=== PATIENT | male | born 1960 | race Caucasian/White ===

== ENCOUNTER 2021-01-06 12:46 | Emergency (ER) | payer OTHER, SELFPAY ==
[2021-01-06 13:33] VITALS: BP 144/98; PULSE 74; RESP 16; TEMP 37.1; O2SAT 97; BMI 28.0
[2021-01-06 13:59] LABS: IDNOW Serial# 9DD0AD1C; Strep A Nucleic Acid Negative (Negative)
[2021-01-06 14:04] LABS: COVID-19 Test Negative (Negative)
--- NOTE | 2021-01-06 14:26 | ED_ITS ---
HPI - General Adult General Chief complaint: General Medical Stated complaint: flu like symptoms Time Seen by Provider: 01/06/21 13:36 Source: patient Mode of arrival: ambulatory Limitations: no limitations History of Present Illness HPI narrative: Patient presents to ED for flu-like symptoms when patient states sore throat, bodyaches, chills and headache since yesterday. Patient states that he is vaccinated against COVID. Patient states no coughing, chest pain, abdominal pain, dysuria, hematuria, flank pain, nausea, vomitting, shortness of breath, diarrhea, dizzines, or weakness. Related Data Allergies Allergy/AdvReac Type Severity Reaction Status Date / Time No Known Allergies Allergy Verified 01/06/21 13:34 [No Known Allergies*] Review of Systems Constitutional: Constitutional: Reports as per HPI, Reports no additional constitutional complaints, Reports body ache(s), Reports chills and Reports headache(s) Eyes: Eyes: Reports as per HPI and Reports no additional eye complaints ENT: Reports system reviewed and no additional complaints, except as documented, Reports as per HPI, Reports headache(s) and Reports sore throat Cardiovascular: Cardiovascular: Reports as per HPI and Reports no additional cardiovascular complaints Respiratory: Respiratory: Reports as per HPI and Reports no additional respiratory complaints Gastrointestinal: Gastrointestinal: Reports as per HPI and Reports no additional gastrointestinal complaints Genitourinary: Genitourinary: Reports no additional male genitourinary complaints and Reports as per HPI Musculoskeletal: Musculoskeletal: Reports no additional musculoskeletal complaints and Reports as per HPI Neurologic: Reports system reviewed and no additional complaints, except as documented, Reports as per HPI and Reports headache(s) Psychiatric: Psychiatric: Reports no additional psychiatric complaints and Reports as per HPI [facility] Past Medical History Medical History (Updated 01/06/21 @ 14:37 by ISAÍAS Corral) HIV (human immunodeficiency virus infection) Social History Social History Advance Directives: Yes Advance Directives Information Provided: Yes Advance Directives on File: No Physical Exam Vital Signs: Vital Signs: Last Vital Signs Temp 98.8 F 01/06/21 13:33 Pulse 74 01/06/21 13:33 Resp 16 01/06/21 13:33 BP 144/98 H 01/06/21 13:33 Pulse Ox 97 01/06/21 13:33 Body Mass Index 28.0 Const: General: cooperative, healthy appearing, comfortable, no acute di stress, well developed, alert and awake Orientation/consciousness: patient oriented x3 HENMT: Head: Yes normal to inspection, Yes No palpable skull fracture present, Yes normocephalic, Yes atraumatic and No abrasion Throat: Yes posterior oropharynx normal, Yes tonsils normal and Yes uvula midline Eyes: General: appearance normal, both eyes and all related structures Neck: Neck: Yes normal visual inspection, Yes full ROM, Yes no lymphadenopathy, Yes no meningeal signs, Yes trachea midline, Yes supple and No tender Chest: Chest palpation & inspection: normal inspection of the chest and normal palpation of entire chest wall Resp: Effort & Inspection: normal respiratory effort and able to speak in complete sentences Auscultation: clear to auscultation bilaterally Cardio: Jugular venous distension: no JVD Heart sounds: S1 normal heart sound present and S2 normal heart sound present GI: Inspection: Yes normal to inspection and No abdominal wall ecchymosis Palpation (GI): Soft to palpation, not firm, nontender, no guarding and not rigid : General: No CVA tenderness and Yes no CVA tenderness Back/Spine/Pelvis: Back: no CVA tenderness, No CVA tenderness and No back tenderness Skin: General skin exam: no rashes or lesions noted and elasticity normal Neuro: General: patient oriented x3, gait normal, no meningeal signs and CN's II-XI intact bilaterally Cranial nerves: Yes CN's II-XII intact bilaterally Extrem: General: Yes normal to inspection and Yes full ROM Psych: Appearance: grossly normal, well kempt and not disheveled Course Course Course Narrative: Patient have COVID swab and rapid strep test 1 Reevaluation(s) Reevaluation #1: COVID swab and strep test came back negative. Patient will be discharge Time: 14:34 Medical Decision Making [facility] Narrative Medical decision making narrative: Viral pharyngitis Lab Data Labs: Lab Results 01/06/21 01/06/21 Range/Units 13:37 13:37 COVID-19 ([place]) Negative (Negative) COVID-19 Clin Com See Note S. pyogenes GrpA NADJA Negative (Negative) Discharge Plan Discharge Clinical Impression: Acute viral pharyngitis, Acute viral syndrome Patient Disposition: Home, Self-Care Instructions: Pharyngitis (ED), Viral Syndrome (ED) Additional Instructions: Return to the ED immediately for change in voice, drooling, worsening throat pain, inability to tolerate solid food/liquid, fever, chest pain, shortness of breath, coughing up blood, neck pain, or any other concerning symptoms. Your COVID swab and strep nucleic acid test came back negative Referrals: Jag Duong MD [Primary Care Provider] - 2 days (Viral pharyngitis. Strep and COVID test came back negative) Interventions: ED Discharge Assessment Last Done: 01/06/21 14:40 Discharge Date/Time: 01/06/21 14:45 Print Language: Faroese
== END 2021-01-06 14:45 | disposition home or self-care (01) ==
PROVIDERS: Emergency Provider Emergency Medicine; PCP Internal Medicine Infectious Disease
DX: B34.9 Viral infection, unspecified (principal); J02.8 Acute pharyngitis due to other specified organisms; Z21 Asymptomatic human immunodeficiency virus [HIV] infection status; Z20.822 Contact with and (suspected) exposure to COVID-19
CPT/HCPCS: 36415; 87635; 87651; 99283

== ENCOUNTER 2021-04-11 14:44 | Outpatient (REF) | payer OTHER, SELFPAY | END 2021-04-11 14:45 | disposition home or self-care (01) | LOC: HO.LAB 14:44 | PROVIDERS: PCP Internal Medicine Infectious Disease; Visit Provider Internal Medicine | DX: Z20.822 Contact with and (suspected) exposure to COVID-19 (principal) | CPT/HCPCS: C9803; U0003; U0005 ==

== ENCOUNTER 2021-07-04 12:16 | Outpatient (REF) | payer OTHER, SELFPAY ==
[2021-07-04 12:41] LABS: COVID-19 Test Negative (Negative); IDNOW Serial# 16C4AD1C
== END 2021-07-04 12:17 | disposition home or self-care (01) ==
LOC: HO.LAB 12:16
PROVIDERS: Visit Provider Internal Medicine
DX: Z20.822 Contact with and (suspected) exposure to COVID-19 (principal)
CPT/HCPCS: 36415; 87635; C9803

== ENCOUNTER 2023-01-16 21:09 | Emergency (ER) | payer OTHER, SELFPAY ==
[2023-01-16 21:26] VITALS: BP 154/92; PULSE 77; RESP 18; TEMP 36.6; O2SAT 95; BMI 26.9
[2023-01-16 22:20] LABS: MANUAL DIFF FLAG NO
[2023-01-16 22:24] LABS: Basophils Percent Auto 0.3 % (0-2); Eosinophils Absolute Auto 0.1 X10*3/uL (0.0-0.4); Eosinophils Percent Auto 0.6 % (0-4); Hematocrit 43.3 % (42.0-52.0); Hemoglobin 13.9 g/dl (14.0-18.0); Imm Gran Abs Auto 0.03 X10*3/uL (0.00-0.03); Imm Gran Pct Auto 0.4 % (0.0-0.4); Lymphocytes Absolute Auto 1.4 X10*3/uL (1.2-4.9); Lymphocytes Percent Auto 16.9 % (20-40); Mean Corpuscular HGB Conc 32.1 g/dl (31.0-36.0); Mean Corpuscular Hemoglobin 27.6 pg (27.0-33.0); Mean Corpuscular Volume 85.9 fL (80.0-98.0); Mean Platelet Volume 9.1 fL (9.4-12.4); Monocytes Absolute Auto 0.5 X10*3/uL (0.1-1.2); Monocytes Percent Auto 6.5 % (2-11); Neutrophils Percent Auto 75.3 % (45-73); Platelet Count 250 X10*3/uL (160-400); Red Blood Count 5.04 X10*6/uL (4.60-5.80); Red Cell Distribution Width 14.7 % (11.0-16.0)
[2023-01-16 22:34] VITALS: BP 141/77; PULSE 64; RESP 18; O2SAT 94
[2023-01-16 22:35] LABS: Alanine Aminotransferase 46 U/L (0-40); Albumin Level 4.3 g/dL (3.5-5.0); Alkaline Phosphatase 54 U/L (39-117); Anion Gap 14 (12-20); Aspartate Amino Transferase 36 U/L (5-37); Bilirubin Direct 0.2 mg/dL (0.0-0.5); Bilirubin Total 0.5 mg/dL (0.0-1.0); Blood Urea Nitrogen 17 mg/dL (9-16); Calcium 9.9 mg/dL (8.4-10.2); Carbon Dioxide 24 mmol/L (22-29); Chloride 107 mmol/L (96-108); Creatinine Clr Calc Pharmacy 64.3; Estimated Glomerular Filt Rate > 60; Glucose Random 116 mg/dL (60-115); Lipase 43 U/L (8-78); Potassium 4.1 mmol/L (3.3-5.1); Sodium 141 mmol/L (135-145); Total Protein 8.1 g/dL (6.5-8.0)
[2023-01-16 23:39] VITALS: BP 135/92; PULSE 63; RESP 18; TEMP 36.9; O2SAT 96
--- NOTE | 2023-01-16 23:40 | MHC.EDTECH ---
This tech assumed of care of pt at 2300, VS taken and call martinez placed within reach.
--- NOTE | 2023-01-17 00:02 | MHC.EDTECH ---
This tech attempted to get a urine, Patient stated he is unable to give at this time. Will reattempt RN aware
--- NOTE | 2023-01-17 01:20 | PC.NURSE ---
Pt lying on stretcher, family at bedside, no acute distress noted at this time.
--- NOTE | 2023-01-17 01:45 | ED.NAVMDI ---
HPI - Nausea/Vomiting/Diarrhea General Chief complaint: Abdominal Pain Stated complaint: diarrhea / abd pain Time Seen by Provider: 01/16/23 22:53 Source: patient and family Mode of arrival: ambulatory History of Present Illness HPI Narrative: 62-year-old male with history of multiple episodes of diarrhea and abdominal pain, he has a Gastroenterology appointment with colonoscopy scheduled in February and states that he has been once again experiencing this as well as nausea for 5 days but denies any associated fever, chills, vomiting, urinary symptoms, shortness of breath or chest pain/palpitations. Related Data Allergies Allergy/AdvReac Type Severity Reaction Status Date / Time nalbuphine [From Nubain] Allergy Rash Verified 01/16/23 23:42 Review of Systems Review of Systems: Pertinent positives and negatives as stated in HPI [facility] Past Medical History Source: nursing notes reviewed Social History Social History Alcohol intake: current Alcohol intake frequency: holidays/special occasions only Smoked in Last 30 Days: No Use of substances other than those prescribed or required for medical reasons: No Advance Directives: No Advance Directives Information Provided: No Physical Exam Vital Signs: Vital Signs: Last Vital Signs Temp 98.4 F 01/16/23 23:39 Pulse 63 01/16/23 23:39 Resp 18 01/16/23 23:39 BP 135/92 H 01/16/23 23:39 Pulse Ox 96 01/16/23 23:39 O2 Del Method Room Air 01/16/23 23:39 BMI result Body Mass Index 26.9 VITAL SIGNS: Reviewed. GENERAL: Well developed, well nourished, in no acute distress. HEAD: Normocephalic/atraumatic EYES: PERRLA, EOMI EARS: Ext canals without abnormality LUNGS: Normal breath sounds. No adventitious sounds or accessory muscle use. SpO2<96> CARDIOVASCULAR: Regular rate and rhythm without noted murmurs ABDOMEN: Soft, non-tender, non-distended with bowel sounds. MUSCULOSKELETAL: No tenderness, deformities, or effusions noted on gross inspection. EXTREMITIES: No cyanosis, clubbing or edema. SKIN: Inspection of the skin reveals no rashes NEUROLOGIC: Alert and oriented x 4. Strength and sensation to light touch were grossly intact x 4. Medical Decision Making Medical Decision Making MDM Narrative: 62-year-old male with history and clinical presentation, DDX: Viral gastroenteritis, colitis, food poisoning, IBS. There have been no GI bleed symptoms. I reviewed all investigations and hematologic indices are negative for leukocytosis and only mild left shift and patient is afebrile and appears well. Chemistries are grossly within normal limits. Differential Diagnosis Please see the discussion above Lab Data Please see the discussion above 01/16/23 22:16 01/16/23 22:16 Labs: Lab Results 01/16/23 01/16/23 01/17/23 Range/Units 22:16 22:16 00:48 WBC 8.0 (4.8-10.8) X10*3/uL RBC 5.04 (4.60-5.80) X10*6/uL Hgb 13.9 L (14.0-18.0) g/dl Hct 43.3 (42.0-52.0) % MCV 85.9 (80.0-98.0) fL MCH 27.6 (27.0-33.0) pg MCHC 32.1 (31.0-36.0) g/dl RDW 14.7 (11.0-16.0) % Plt Count 250 (160-400) X10*3/uL MPV 9.1 L (9.4-12.4) fL Immature Gran % (Auto) 0.4 (0.0-0.4) % Neut % (Auto) 75.3 H (45-73) % Lymph % (Auto) 16.9 L (20-40) % [place] % (Auto) 6.5 (2-11) % Eos % (Auto) 0.6 (0-4) % Baso % (Auto) 0.3 (0-2) % Lymph # (Auto) 1.4 (1.2-4.9) X10*3/uL [place] # (Auto) 0.5 (0.1-1.2) X10*3/uL Eos # (Auto) 0.1 (0.0-0.4) X10*3/uL Baso # (Auto) 0.0 (0.0-0.2) X10*3/uL Abs Immat Gran (auto) 0.03 (0.00-0.03) X10*3/uL Absolute Neuts (auto) 6.0 (2.0-8.3) x10*3/uL Absolute Nucleated RBC 0.000 (0.0-0.012) X10*3/uL Nucleated RBC % (auto) 0.0 (0.0-0.2) /100WBC Sodium 141 (135-145) mmol/L Potassium 4.1 (3.3-5.1) mmol/L Chloride 107 (96-108) mmol/L Carbon Dioxide 24 (22-29) mmol/L Anion Gap 14 (12-20) BUN 17 H (9-16) mg/dL Creatinine 1.22 (0.5-1.4) mg/dL Estim Creat Clear Calc 64.3 Estimated GFR > 60 Random Glucose 116 H (60-115) mg/dL Calcium 9.9 (8.4-10.2) mg/dL Total Bilirubin 0.5 (0.0-1.0) mg/dL Direct Bilirubin 0.2 (0.0-0.5) mg/dL AST 36 (5-37) U/L ALT 46 H (0-40) U/L Alkaline Phosphatase 54 (39-117) U/L Total Protein 8.1 H (6.5-8.0) g/dL Albumin 4.3 (3.5-5.0) g/dL Lipase 43 (8-78) U/L Urine Color Yellow Urine Appearance Clear Urine pH 6.0 (5.0-9.0) Ur Specific [place] 1.020 (1.005-1.025) Urine Protein Trace (Neg-Trace) mg/dL Urine Glucose (UA) Negative (Negative) mg/dL Urine Ketones Negative (Negative) mg/dL Urine Blood Negative (Negative) Urine Nitrite Negative (Negative) Ur Leukocyte Esterase Negative (Negative) Urine RBC 3-5 H (0-2) /HPF Urine WBC 0-5 (0-5) /HPF Ur Squamous Epith Cells 0-2 (0-2) /HPF Urine Bacteria None Seen (None Seen) Hyaline Casts 0-2 (0-2) /LPF External Record Review External record reviewed: Outpatient record and Prior outpatient labs Chronic Conditions Patient?s care impacted by: Other (HIV) Discharge Plan Discharge Clinical Impression: Gastroenteritis Patient Disposition: Home, Self-Care Instructions: Gastroenteritis (ED), Acute Diarrhea (ED), Nutrition Tips for Relief of Diarrhea (ED) Additional Instructions: 1. Resume all home medications. 2. Please continue to drink plenty of fluids to include Pedialyte. Please review the recommendations for dietary changes to improve your diarrhea. 3. Please follow-up with your primary care provider next week. Return to the ER for any worsening symptoms.
== END 2023-01-17 01:57 | disposition home or self-care (01) ==
PROVIDERS: Emergency Provider Student in an Organized Health Care Education/Training Program
DX: K52.9 Noninfective gastroenteritis and colitis, unspecified (principal)
CPT/HCPCS: 36415; 80048; 80076; 81001; 83690; 85025; 99283; 99284

== ENCOUNTER 2023-06-08 06:08 | Day surgery (SDC) | payer OTHER, SELFPAY ==
[2023-06-02 16:26] VITALS: BMI 28.4
--- NOTE | 2023-06-05 08:08 | MHC.SHP ---
Pre-Procedural Eval Section A Date of Service: 06/05/23 The patient is an INPATIENT: No Changes since office visit: No Cold of Flu in the past 2 weeks, No New Medical Problems, No Changes in Medication and No Patient answered all questions The History & Physical has been completed within 30 days and I have reviewed it.: Yes Section B Chief Complaint: Age-related nuclear cataract, left eye Allergies: Allergies Allergy/AdvReac Type Severity Reaction Status Date / Time nalbuphine [From Nubain] AdvReac advised to Verified 06/02/23 16:31 avoid while on methadone Plan Diagnosis/Plan: Unchanged I have reviewed the history and physical and performed a pertinent physical examination on my patient. No changes have occurred unless specified. Time Spent With Patient Time: Total time managing care of this patient today ____ minutes.
--- NOTE | 2023-06-05 08:39 | HO.ANESPROP2 ---
Documented by User: Corrine Rangel NP 06/05/23 08:40 HPI - Anesthesia Eval Consult details Narrative: 63yo M for Left Cataract Extraction IOL Insertion Medically cleared No previous cataract on record PMFSH Past Medical History Medical History Cataract Weight loss Weakness H/O toxoplasmosis Superficial thrombophlebitis Postural dizziness Insomnia HTN (hypertension) Chronic hepatitis C Anxiety HIV (human immunodeficiency virus infection) Surgical History Surgical History Hx of right inguinal hernia repair Social History Social History Household Members: None Housing: Apartment Are you a primary critical care transport nurse to a significant other at home: No Do you presently have visiting nurse or other home services: Yes ([employer] 1 hour per day) Alcohol intake: current Alcohol intake frequency: does not drink Patient Tobacco Use Status: Former Tobacco user Quit Date: 2016 Tobacco use type: Cigarette Have you been hit, kicked, punched, or otherwise hurt by someone within the past year? If so, by whom?: No Are you DNR?: No Advance Directives: No Advance Directives Information Provided: Yes Advance Directives on File: No Recently lost weight without trying: No Nutrition Risks: No Nutritional Risk Poor oral hygiene: No Meds Allergies Allergy/AdvReac Type Severity Reaction Status Date / Time nalbuphine [From Nubain] AdvReac advised to Verified 06/08/23 06:38 avoid while on methadone Home Medications Medication Instructions Recorded Confirmed Last Taken Type acetaminophen 500 mg tablet 1,000 mg PO TID PRN Pain 06/02/23 06/02/23 Unknown History amlodipine 5 mg tablet 5 mg PO DAILY 06/02/23 06/02/23 Unknown History bictegravir 50 mg-emtricitabine 1 tab PO DAILY 06/02/23 06/02/23 Unknown History 200 mg-tenofovir alafenam 25 mg tablet (Biktarvy) ibuprofen 800 mg tablet 800 mg PO TID PRN Pain 06/02/23 06/02/23 Unknown History lisinopril 20 1 tab PO DAILY 06/02/23 06/02/23 Unknown History mg-hydrochlorothiazide 25 mg tablet melatonin 5 mg tablet 15 mg PO BEDTIME PRN Insomnia 06/02/23 06/02/23 Unknown History multivitamin with folic acid 400 1 tab PO DAILY 06/02/23 06/02/23 Unknown History mcg tablet (Daily-Edie (with folic acid)) pantoprazole 40 mg tablet,delayed 40 mg PO DAILY 06/02/23 06/02/23 Unknown History release quetiapine 25 mg tablet 25 mg PO DAILY 06/02/23 06/02/23 Unknown History rosuvastatin 10 mg tablet 10 mg PO BEDTIME 06/02/23 06/02/23 Unknown History valacyclovir 500 mg tablet 500 mg PO BID PRN Cold Sores 06/02/23 06/02/23 Unknown History methadone 5 mg/5 mL oral solution 4 mg PO DAILY 06/08/23 06/08/23 06/08/23 05:20 History Exam Height,Weight and Vital Signs: Height 5 ft 9 in Weight 87.09 kg Assessment and Plan Assessment Anesthesia Assessment: Chart Reviewed Documented by User: Sangita Tai MD 06/08/23 07:34 PMF Active Problems Active Problems: On methadone. Took this morning Snores. Possible MAC. Scheduled to have sleep study Past Medical History Medical History Cataract Weight loss Weakness H/O toxoplasmosis Superficial thrombophlebitis Postural dizziness Insomnia HTN (hypertension) Chronic hepatitis C Anxiety HIV (human immunodeficiency virus infection) Family History Family history of problems with anesthesia: No Surgical History Surgical History Hx of right inguinal hernia repair History of Problems with Anesthesia: No Social History Social History Household Members: None Housing: Apartment Are you a primary critical care transport nurse to a significant other at home: No Do you presently have visiting nurse or other home services: Yes ([employer] 1 hour per day) Alcohol intake: current Alcohol intake frequency: does not drink Patient Tobacco Use Status: Former Tobacco user Quit Date: 2016 Tobacco use type: Cigarette Have you been hit, kicked, punched, or otherwise hurt by someone within the past year? If so, by whom?: No Are you DNR?: No Advance Directives: No Advance Directives Information Provided: Yes Advance Directives on File: No Recently lost weight without trying: No Nutrition Risks: No Nutritional Risk Poor oral hygiene: No Meds Allergies Allergy/AdvReac Type Severity Reaction Status Date / Time nalbuphine [From Nuin] AdvReac advised to Verified 06/08/23 06:38 avoid while on methadone Home Medications Medication Instructions Recorded Confirmed Last Taken Type acetaminophen 500 mg tablet 1,000 mg PO TID PRN Pain 06/02/23 06/02/23 Unknown History amlodipine 5 mg tablet 5 mg PO DAILY 06/02/23 06/02/23 Unknown History bictegravir 50 mg-emtricitabine 1 tab PO DAILY 06/02/23 06/02/23 Unknown History 200 mg-tenofovir alafenam 25 mg tablet (Biktarvy) ibuprofen 800 mg tablet 800 mg PO TID PRN Pain 06/02/23 06/02/23 Unknown History lisinopril 20 1 tab PO DAILY 06/02/23 06/02/23 Unknown History mg-hydrochlorothiazide 25 mg tablet melatonin 5 mg tablet 15 mg PO BEDTIME PRN Insomnia 06/02/23 06/02/23 Unknown History multivitamin with folic acid 400 1 tab PO DAILY 06/02/23 06/02/23 Unknown History mcg tablet (Daily-Edie (with folic acid)) pantoprazole 40 mg tablet,delayed 40 mg PO DAILY 06/02/23 06/02/23 Unknown History release quetiapine 25 mg tablet 25 mg PO DAILY 06/02/23 06/02/23 Unknown History rosuvastatin 10 mg tablet 10 mg PO BEDTIME 06/02/23 06/02/23 Unknown History valacyclovir 500 mg tablet 500 mg PO BID PRN Cold Sores 06/02/23 06/02/23 Unknown History methadone 5 mg/5 mL oral solution 4 mg PO DAILY 06/08/23 06/08/23 06/08/23 05:20 History Exam Height,Weight and Vital Signs: Height 5 ft 9 in Weight 87.09 kg Vital Signs Temp Pulse Resp BP Pulse Ox O2 Del Method 06/08/23 06:22 97.9 F 61 16 142/89 H 96 Room Air Airway Mallampati Class: III TM Dist: >3cm Neck ROM: Full Loose/Missing/Broken Teeth: Yes (Molars extracted) Heart: RRR Lungs: CTAB. Diminished Assessment and Plan Assessment Anesthesia Assessment: Anesthesia Plan Discussed Final Anesthetic Review Family History of Problems with Anesthesia: No History of Problems with Anesthesia: No NPO: Yes ASA Class: III Final Preanesthetic Review: No Changes in Pt Med Stat, Meds/Allgs Chart Reviewed, Consent Obtained/Reviewed and Anes Risks/Benef Reviewed Patient Risk: Intermediate Procedure Risk: Low Assessment/Block/Sedation in SS: Assess/Block/Sedation-SS Anesthetic Plan Anesthetic Plan: MAC: Disposition: Standard PACU
[2023-06-08 06:22] VITALS: BP 142/89; PULSE 61; RESP 16; TEMP 36.6; O2SAT 96
[2023-06-08] MEDS: Tetracaine HCl/PF 0.5% Oph Sol 4 ML DROPS 1 DROP EYE-LEFT (06:27)
[2023-06-08] MEDS: Cyclopentolate 1 % Ophth Sol 2 ML DRPBTL 1 DROP EYE-LEFT ×3 (06:28→06:41)
[2023-06-08] MEDS: Tropicamide 1 % Ophth Sol 3 ML BTL 1 DROP EYE-LEFT ×3 (06:29→06:42)
[2023-06-08] MEDS: Ketorolac Tromethamine 0.5% Op 5 ML DROPS 1 DROP EYE-LEFT ×3 (06:31→06:43)
[2023-06-08] MEDS: Phenylephrine HCL 2.5% Oph SoL 2 ML BOTTLE 1 DROP EYE-LEFT ×3 (06:33→06:44)
[2023-06-08] MEDS: Lactated Ringers 500 ML 50 ML IV (06:37)
--- NOTE | 2023-06-08 07:20 | HO.PNOPHT ---
Ophthalmology Procedure Procedure Date of Service: 06/08/23 Ophthalmology Viscoelastic: Healon Duet Dual Pack Pro Ophthalmology Lenses: TECJOON [id number] (17) Procedure Notes: PREOPERATIVE DIAGNOSIS: Decreased visual acuity left eye secondary to cataract POSTOPERATIVE DIAGNOSIS: Same PROCEDURE: Left cataract extraction with intraocular lens insertion SURGEON: Joaquin Vieira M.D. ANESTHESIA: Topical/MAC ESTIMATED BLOOD LOSS: None COMPLICATIONS: None After obtaining informed consent, the patient was brought to the operation room suite and placed in the supine position. After adequate sedation per anesthesia, topical drops of Tetracaine were given to the left eye. The eye was then prepped and draped in the usual sterile fashion. The operating room microscope was then positioned over the operative eye and a lid speculum placed. A paracentesis was created. Viscoelastic was then instilled into the anterior chamber. A three plane incision was then created temporally, utilizing a 2.85 mm keratome. Capsulotomy forceps were then utilized to create a circular tear capsulotomy. Hydrodissection and hydrodelineation were carried out until adequate mobilization of the nucleus occurred. Phacoemulsification was then utilized to remove the dense central nucleus followed by removal of the cortical material utilizing the automated aspiration irrigation unit. Viscoat elastic was instilled into the posterior capsular bag followed by placement of a posterior chamber intraocular lens without difficulty. The residual Viscoat elastic was then removed utilizing the automated IA machine. The wound was check and found to be watertight. The patient tolerated the procedure well and the lid speculum was removed. Intracameral injection of Vigamox 0.1 mL followed by a subtenon injection of Kenalog-40 0.2 mL were administered. The patient will be seen in the a.m.
[2023-06-08 07:53] VITALS: BP 126/88; PULSE 62; RESP 16; TEMP 36.4; O2SAT 96
== END 2023-06-08 08:08 | disposition home or self-care (01) ==
PROVIDERS: Visit Provider Ophthalmology
PROC: (CPT 66985; principal; 2023-06-08 07:30)
DX: H25.12 Age-related nuclear cataract, left eye (principal); H54.7 Unspecified visual loss; H52.4 Presbyopia; H11.153 Pinguecula, bilateral; H43.393 Other vitreous opacities, bilateral; I10 Essential (primary) hypertension; F41.9 Anxiety disorder, unspecified; B20 Human immunodeficiency virus [HIV] disease; B19.20 Unspecified viral hepatitis C without hepatic coma; Z79.899 Other long term (current) drug therapy; Z79.891 Long term (current) use of opiate analgesic; Z79.1 Long term (current) use of non-steroidal anti-inflammatories (NSAID); Z87.891 Personal history of nicotine dependence
CPT/HCPCS: 66984; J2250; J3301; V2632

== ENCOUNTER 2023-06-22 06:05 | Day surgery (SDC) | payer OTHER, SELFPAY ==
[2023-06-02 16:33] VITALS: BMI 28.4
--- NOTE | 2023-06-19 07:39 | MHC.SHP ---
Pre-Procedural Eval Section A Date of Service: 06/19/23 The patient is an INPATIENT: No Changes since office visit: No Cold of Flu in the past 2 weeks, No New Medical Problems, No Changes in Medication and No Patient answered all questions The History & Physical has been completed within 30 days and I have reviewed it.: Yes Section B Chief Complaint: Age-related nuclear cataract, right eye Allergies: Allergies Allergy/AdvReac Type Severity Reaction Status Date / Time nalbuphine [From Nubain] AdvReac advised to Verified 06/08/23 06:38 avoid while on methadone Plan Diagnosis/Plan: Unchanged I have reviewed the history and physical and performed a pertinent physical examination on my patient. No changes have occurred unless specified. Time Spent With Patient Time: Total time managing care of this patient today ____ minutes.
--- NOTE | 2023-06-19 09:34 | P.CONAN_ITS ---
Documented by User: Corrine Rangel NP 06/19/23 09:35 HPI - Anesthesia Eval Consult details Narrative: 63yo M for Right Cataract Extraction IOL Insertion Medically cleared s/p Left eye 05/2023: [facility] Past Medical History Medical History Cataract Weight loss Weakness H/O toxoplasmosis Superficial thrombophlebitis Postural dizziness Insomnia HTN (hypertension) Chronic hepatitis C Anxiety HIV (human immunodeficiency virus infection) Family History Family history of problems with anesthesia: No Surgical History Surgical History Hx of cataract removal with insertion of prosthetic lens Hx of right inguinal hernia repair History of Problems with Anesthesia: No Social History Social History Household Members: None Housing: Apartment Are you a primary palliative care physician to a significant other at home: No Do you presently have visiting nurse or other home services: Yes ([employer] 1 hour per day) Alcohol intake: current Alcohol intake frequency: does not drink Patient Tobacco Use Status: Former Tobacco user Quit Date: 2016 Tobacco use type: Cigarette Last Used Substance Other:: 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 If so, by whom?: No Are you DNR?: No Advance Directives: No Advance Directives Information Provided: Yes Advance Directives on File: No Healthcare Proxy: No Recently lost weight without trying: No Nutrition Risks: No Nutritional Risk Poor oral hygiene: No Meds Allergies Allergy/AdvReac Type Severity Reaction Status Date / Time nalbuphine [From Nubain] AdvReac advised to Verified 06/22/23 06:37 avoid while on methadone Home Medications Medication Instructions Recorded Confirmed Last Taken Type acetaminophen 500 mg tablet 1,000 mg PO TID PRN Pain 06/02/23 06/02/23 Unknown History amlodipine 5 mg tablet 5 mg PO DAILY 06/02/23 06/22/23 06/22/23 History bictegravir 50 mg-emtricitabine 1 tab PO DAILY 06/02/23 06/22/23 06/22/23 History 200 mg-tenofovir alafenam 25 mg tablet (Biktarvy) ibuprofen 800 mg tablet 800 mg PO TID PRN Pain 06/02/23 06/02/23 Unknown History lisinopril 20 1 tab PO DAILY 06/02/23 06/02/23 Unknown History mg-hydrochlorothiazide 25 mg tablet melatonin 5 mg tablet 15 mg PO BEDTIME PRN Insomnia 06/02/23 06/02/23 Unknown History multivitamin with folic acid 400 1 tab PO DAILY 06/02/23 06/02/23 Unknown History mcg tablet (Daily-Edie (with folic acid)) pantoprazole 40 mg tablet,delayed 40 mg PO DAILY 06/02/23 06/22/23 06/22/23 History release quetiapine 25 mg tablet 25 mg PO DAILY 06/02/23 06/02/23 Unknown History rosuvastatin 10 mg tablet 10 mg PO BEDTIME 06/02/23 06/02/23 Unknown History valacyclovir 500 mg tablet 500 mg PO BID PRN Cold Sores 06/02/23 06/02/23 Unknown History methadone 5 mg/5 mL oral solution 4 mg PO DAILY 06/08/23 06/22/23 06/22/23 History Exam Height,Weight and Vital Signs: Height 5 ft 9 in Weight 87.09 kg Assessment and Plan Assessment Anesthesia Assessment: Chart Reviewed Final Anesthetic Review Family History of Problems with Anesthesia: No History of Problems with Anesthesia: No Documented by User: Sangita Tai MD 06/22/23 07:42 HPI - Anesthesia Eval Consult details Narrative: 63yo M for Right Cataract Extraction IOL Insertion Medically cleared s/p Left eye 05/2023: Midaz 2 Took methadone this am PMFSH Active Problems Active Problems: Snores. Possible MAC. 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 If so, by whom?: No Are you DNR?: No Advance Directives: No Advance Directives Information Provided: Yes Advance Directives on File: No Healthcare Proxy: No Recently lost weight without trying: No Nutrition Risks: No Nutritional Risk Poor oral hygiene: No Meds Allergies Allergy/AdvReac Type Severity Reaction Status Date / Time nalbuphine [From Nubain] AdvReac advised to Verified 06/22/23 06:37 avoid while on methadone Home Medications Medication Instructions Recorded Confirmed Last Taken Type acetaminophen 500 mg tablet 1,000 mg PO TID PRN Pain 06/02/23 06/02/23 Unknown History amlodipine 5 mg tablet 5 mg PO DAILY 06/02/23 06/22/23 06/22/23 History bictegravir 50 mg-emtricitabine 1 tab PO DAILY 06/02/23 06/22/23 06/22/23 History 200 mg-tenofovir alafenam 25 mg tablet (Biktarvy) ibuprofen 800 mg tablet 800 mg PO TID PRN Pain 06/02/23 06/02/23 Unknown History lisinopril 20 1 tab PO DAILY 06/02/23 06/02/23 Unknown History mg-hydrochlorothiazide 25 mg tablet melatonin 5 mg tablet 15 mg PO BEDTIME PRN Insomnia 06/02/23 06/02/23 Unknown History multivitamin with folic acid 400 1 tab PO DAILY 06/02/23 06/02/23 Unknown History mcg tablet (Daily-Edie (with folic acid)) pantoprazole 40 mg tablet,delayed 40 mg PO DAILY 06/02/23 06/22/23 06/22/23 History release quetiapine 25 mg tablet 25 mg PO DAILY 06/02/23 06/02/23 Unknown History rosuvastatin 10 mg tablet 10 mg PO BEDTIME 06/02/23 06/02/23 Unknown History valacyclovir 500 mg tablet 500 mg PO BID PRN Cold Sores 06/02/23 06/02/23 Unknown History methadone 5 mg/5 mL oral solution 4 mg PO DAILY 06/08/23 06/22/23 06/22/23 History Exam Height,Weight and Vital Signs: Height 5 ft 9 in Weight 87.09 kg Vital Signs Temp Pulse Resp BP Pulse Ox O2 Del Method 06/22/23 06:33 97.9 F 66 18 140/93 H 97 Room Air Airway Mallampati Class: III TM Dist: >3cm Neck ROM: Full Loose/Missing/Broken Teeth: Yes (Molars extracted) Heart: RRR Lungs: CTAB Assessment and Plan Assessment Anesthesia Assessment: Anesthesia Plan Discussed Final Anesthetic Review NPO: Yes ASA Class: III Final Preanesthetic Review: No Changes in Pt Med Stat, Meds/Allgs Chart Reviewed, Consent Obtained/Reviewed and Anes Risks/Benef Reviewed Patient Risk: Intermediate Procedure Risk: Low Assessment/Block/Sedation in SS: Assess/Block/Sedation-SS Anesthetic Plan Anesthetic Plan: MAC: Disposition: Standard PACU
[2023-06-22] MEDS: Tetracaine HCl/PF 0.5% Oph Sol 4 ML DROPS 1 DROP EYE-RIGHT (06:20)
[2023-06-22] MEDS: Tropicamide 1 % Ophth Sol 3 ML BTL 1 DROP EYE-RIGHT ×3 (06:21→06:27)
[2023-06-22] MEDS: Lactated Ringers 500 ML 50 ML IV (06:21)
[2023-06-22] MEDS: Ketorolac Tromethamine 0.5% Op 5 ML DROPS 1 DROP EYE-RIGHT ×3 (06:21→06:27)
[2023-06-22] MEDS: Phenylephrine HCL 2.5% Oph SoL 2 ML BOTTLE 1 DROP EYE-RIGHT ×3 (06:21→06:27)
[2023-06-22] MEDS: Cyclopentolate 1 % Ophth Sol 2 ML DRPBTL 1 DROP EYE-RIGHT ×3 (06:25→06:31)
[2023-06-22 06:33] VITALS: BP 140/93; PULSE 66; RESP 18; TEMP 36.6; O2SAT 97
--- NOTE | 2023-06-22 06:51 | PC.NURSE ---
IV inserted by roney ortiz rn
--- NOTE | 2023-06-22 07:57 | HO.PNOPHT ---
Ophthalmology Procedure Procedure Date of Service: 06/22/23 Ophthalmology Viscoelastic: Cady Zamant Dual Pack Pro Ophthalmology Lenses: TECJOON [id number] (17) Procedure Notes: PREOPERATIVE DIAGNOSIS: Decreased visual acuity right eye secondary to cataract POSTOPERATIVE DIAGNOSIS: Same PROCEDURE: Right cataract extraction with intraocular lens insertion SURGEON: Joaquin Viiera M.D. ANESTHESIA: Topical/MAC ESTIMATED BLOOD LOSS: None COMPLICATIONS: None After obtaining informed consent, the patient was brought to the operating room suite and placed in the supine position. After adequate sedation per anesthesia, topical drops of Tetracaine were given to the right eye. The eye was then prepped and draped in the usual sterile fashion. The operating room microscope was then positioned over the operative eye and a lid speculum placed. A paracentesis was created. Viscoelastic was then instilled into the anterior chamber. A three plane incision was then created temporally, utilizing a 2.85 mm keratome. Capsulotomy forceps were then utilized to create a circular tear capsulotomy. Hydrodissection and hydrodelineation were carried out until adequate mobilization of the nucleus occurred. Phacoemulsification was then utilized to remove the dense central nucleus followed by removal of the cortical material utilizing the automated aspiration irrigation unit. Viscoelastic was instilled into the posterior capsular bag followed by placement of a posterior chamber intraocular lens without difficulty. The residual Viscoelastic was then removed utilizing the automated IA machine. The wound was checked and found to be watertight. The patient tolerated the procedure well and the lid speculum was removed. Intracameral injection of Vigamox 0.1 mL followed by a subtenon injection of Kenalog-40 0.2 mL were administered. The patient will be seen in the a.m.
[2023-06-22 08:03] VITALS: BP 104/70; PULSE 60; RESP 18; TEMP 36.3; O2SAT 98
== END 2023-06-22 08:08 | disposition home or self-care (01) ==
PROVIDERS: Visit Provider Ophthalmology
PROC: (CPT 66985; principal; 2023-06-22 07:30)
DX: H25.11 Age-related nuclear cataract, right eye (principal); H54.7 Unspecified visual loss; H11.153 Pinguecula, bilateral; H43.393 Other vitreous opacities, bilateral; I10 Essential (primary) hypertension; B20 Human immunodeficiency virus [HIV] disease; B18.2 Chronic viral hepatitis C; Z79.899 Other long term (current) drug therapy; Z79.1 Long term (current) use of non-steroidal anti-inflammatories (NSAID); Z87.891 Personal history of nicotine dependence
CPT/HCPCS: 66984; J2250; J3010; J3301; V2632